=== PATIENT | female | born 1985 | race Caucasian/White ===

== ENCOUNTER 2018-03-05 00:05 | Emergency (ER) | payer OTHER ==
[~2018-03-05] VITALS: Ht 162.6 cm; Wt 72.6 kg
[~2018-03-05 00:05] MED LIST: BIRTHCONTROL; BRINTELLIX20 MG PO; CEPHALEXIN 500500 M3 PO; IBUPROFEN 800800 M1 PO
[2018-03-05] MEDS ORDERED: LIORESAL 10 MG10 MG PO (00:15)
[2018-03-05] MEDS ORDERED: ADDERALL 20 MG20 M1 PO (00:16)
[2018-03-05] MEDS ORDERED: ADDERALL 20 MG20 MG PO (00:16)
[2018-03-05] MEDS ORDERED: ALDACTONE50 MG PO (00:17)
[2018-03-05 01:01] VITALS: BP 118/78
== END 2018-03-05 01:01 | disposition home or self-care (01) ==
LOC: M.ERS 00:05
DX: R04.0 Epistaxis (principal); F17.210 Nicotine dependence, cigarettes, uncomplicated

== ENCOUNTER 2019-02-16 21:37 | Emergency (ER) | payer OTHER ==
[~2019-02-16] VITALS: Ht 162.6 cm; Wt 74.8 kg
[~2019-02-16 21:37] MED LIST changes: +ADDERALL 20 MG20 M1 PO; +ADDERALL 20 MG20 MG PO; +ALDACTONE50 MG PO; +LIORESAL 10 MG10 MG PO
[2019-02-16] MEDS ORDERED: FLONASE 0.05%50 MCG NARES (23:26)
[2019-02-16 23:37] VITALS: BP 131/77
[2019-02-17] MEDS ORDERED: AMOXICILLIN875 MG PO (23:27)
[2019-02-17] MEDS ORDERED: LORCET 5-325 M1 EACH PO (23:27)
== END 2019-02-16 23:38 | disposition home or self-care (01) ==
LOC: M.ERS 21:37
DX: R04.0 Epistaxis (principal); F41.9 Anxiety disorder, unspecified; F32.9 Major depressive disorder, single episode, unspecified; F17.210 Nicotine dependence, cigarettes, uncomplicated

== ENCOUNTER 2019-02-17 22:49 | Emergency (ER) | payer OTHER ==
[~2019-02-17] VITALS: Ht 162.6 cm; Wt 73.5 kg
[~2019-02-17 22:49] MED LIST changes: +FLONASE 0.05%50 MCG NARES
[2019-02-17] MEDS ORDERED: AMOXICILLIN875 MG PO (23:27)
[2019-02-17] MEDS ORDERED: LORCET 5-325 M1 EACH PO (23:27)
[2019-02-17 23:35] VITALS: BP 118/78
== END 2019-02-17 23:36 | disposition home or self-care (01) ==
LOC: M.ERS 22:49
DX: R04.0 Epistaxis (principal); F41.9 Anxiety disorder, unspecified; F32.9 Major depressive disorder, single episode, unspecified; F17.210 Nicotine dependence, cigarettes, uncomplicated